=== PATIENT | female | born 1995 | race Caucasian/White ===

== ENCOUNTER 2024-12-18 13:25 | Emergency (ER) | payer OTHER, SELFPAY ==
[2024-12-18 13:47] VITALS: BP 105/72; PULSE 108; PULSE 84; RESP 22; TEMP 36.6; O2SAT 98; BMI 16.3
--- NOTE | 2024-12-18 13:47 | ECG_ITS ---
Test Reason : overdose Blood Pressure : */* mmHG Vent. Rate : 72 BPM Atrial Rate : 72 BPM P-R Int : 122 ms QRS Dur : 78 ms QT Int : 398 ms P-R-T Axes : * 53 48 degrees QTcB Int : 435 ms Normal sinus rhythm Normal ECG No previous ECGs available Referred By: Mary Barbosa Electronically Signed By: THERESE ELIZABETH MD
--- NOTE | 2024-12-18 13:53 | PC.NURSE ---
pt arrived via EMS reporting that she was told she could refuse treatment and be discharged if she wanted to be. EMS reported SI attempt via OD of home meds. Dr. Barbosa made aware of situation as pt once in room started becoming agitated, stating that she does not want to be here and does not consent to treatment. pt placed on a section 12 at this time. encourage to exchange consultant in room with Rosanna MARSHALL and Security at bedside. pt has a comfort dog with her.
[2024-12-18 13:54] VITALS: BP 112/62; PULSE 108; RESP 22; TEMP 36.4; O2SAT 99
--- NOTE | 2024-12-18 13:54 | ED_ITS ---
HPI - Psych General Chief Complaint: Psychiatric Symptoms Stated Complaint: SI ATTEMPT BY OD ON HIGH DOSES OF MEDS Time Seen by Provider: 12/18/24 13:29 History of Present Illness HPI Narrative: Patient is a 29-year-old female presented today with having extreme anxiety. Patient got upset at her significant other. Decided to take an overdose of medication. Patient claims that she has Wellbutrin and Effexor. Patient claims she took approximately 1200 mg of Wellbutrin instead of her normal 300 mg dose. Also took her normal dose of Effexor which is 1 tablet about 150. She took it at approximately 11:00 in the morning. Took it because she got into an argument with her significant other. No fever no chills no chest pain or shortness breath no focal weakness. Patient from home. Related Data Allergies Allergy/AdvReac Type Severity Reaction Status Date / Time No Known Allergies Allergy Verified 12/18/24 14:00 Review of Systems 2 Review of Systems: No fever no chills no chest pain or shortness of breath Refused answer anymore as questions PMFSH Past Medical History Attestation statement: The following information was validated with the patient. Social History Social History Smoked in Last 30 Days: No Advance Directives: No Advance Directives Information Provided: Yes Do you have a plan to hurt others: No Plan Patient : No Physical Exam 2 Vital Signs: Vital Signs: Last Vital Signs Temp 97.5 F 12/18/24 13:54 Pulse 108 H 12/18/24 13:54 Resp 22 H 12/18/24 13:54 BP 112/62 12/18/24 13:54 Pulse Ox 99 12/18/24 13:54 O2 Del Method Room Air 12/18/24 13:54 BMI result Body Mass Index 16.3 Appearance: Alert. Oriented X3. No acute distress. Eyes: Pupils equal, round and reactive to light. ENT: Pharynx normal. Neck: Normal inspection. Neck supple. No lymph nodes noted. No crepitus CVS: Normal heart rate and rhythm. Pulses normal. Normal S1 and S2 Respiratory: No respiratory distress. Breath sounds normal. No Wheezing. No rales Abdomen: Soft and nontender. No rigidity. No distention. good BS x4 Skin: Skin warm and dry. Normal skin color. Normal skin turgor. Extremities: No lower extremity edema. Neurovascular intact to all extremities. No Lacerations. No Rash Neuro: Oriented X 3. No motor deficit. No sensory deficit. Moving all extermities. No slurred speech. Cranial nerves grossly intact Medications Administered Discontinued Medications Generic Name Dose Route Start Last Admin Trade Name Hemantq PRN Reason Stop Dose Admin Sodium Chloride 1,000 mls @ 999 mls/hr 12/18/24 14:45 12/18/24 14:44 Ns IV 12/18/24 15:45 999 mls/hr .Q1H1M JAMIE Administration Sodium Chloride 1,000 mls @ 999 mls/hr 12/18/24 14:45 12/18/24 14:46 Ns IV 12/18/24 15:45 999 mls/hr .Q1H1M JAMIE Administration Lorazepam 1 mg 12/18/24 13:49 12/18/24 14:40 Lorazepam 1 Mg Tablet PO 12/18/24 13:50 1 mg ONCE ONE Administration Medical Decision Making Medical Decision Making [facility] Narrative: Patient took an overdose of Wellbutrin extended release 300 mg up to 4 tablets instead of taking 1 tablet. Also took 1 dose of Effexor. Patient's EKG showed a sinus pattern heart rate is 70 NM QRS QTC normal no acute ST segment elevation patient in no distress. Electrolytes showed an elevated lactate likely secondary to dehydration there is no signs of sepsis nevertheless 2 L of fluid was given. ABG showed no CO2 retention. No anion gap. Patient was monitored in the ED. Discussed with poison control. Poison control wanted 6 hours of monitoring 24 hours for total clearance. We will get crisis involved will do additional EKG at 16:00 and also at 18:00. Patient is currently in no distress awaiting crisis evaluation. Repeat EKG done at 16:00 shows sinus rhythm heart rate is 100 NM QRS QTC normal no acute ST segment elevation. Differential Diagnosis Differential Diagnoses: The differential diagnosis associated with the presentation includes Suicidal ideation overdose, Wellbutrin poisoning, dehydration, electrolyte disturbance secondary to anorexia Consult Healthcare Provider Management of the patient was discussed with: [facility]ser (Poison control center. Care team consulted) Lab Data [facility] Lab Attestation statement: I reviewed the patient's lab results. 12/18/24 14:12 12/18/24 14:12 Labs: Lab Results 12/18/24 12/18/24 Range/Units 14:12 14:16 WBC 6.1 (4.8-10.8) X10*3/uL RBC 3.48 L (4.20-5.50) X10*6/uL Hgb 11.4 L (12.0-16.0) g/dl Hct 33.6 L (37.0-47.0) % MCV 96.6 (80.0-98.0) fL MCH 32.8 (27.0-33.0) pg MCHC 33.9 (31.0-35.0) g/dl RDW 12.6 (11.0-16.0) % Plt Count 249 (160-400) X10*3/uL MPV 9.1 L (9.4-12.3) fL Immature Gran % (Auto) 0.3 (0.0-0.4) % Neut % (Auto) 50.1 (45-73) % Lymph % (Auto) 43.2 H (20-40) % Hodgeman % (Auto) 5.3 (2-11) % Eos % (Auto) 0.8 (0-4) % Baso % (Auto) 0.3 (0-2) % Lymph # (Auto) 2.6 (1.2-4.9) X10*3/uL Hodgeman # (Auto) 0.3 (0.1-1.2) X10*3/uL Eos # (Auto) 0.1 (0.0-0.4) X10*3/uL Baso # (Auto) 0.0 (0.0-0.2) X10*3/uL Abs Immat Gran (auto) 0.02 (0.00-0.03) X10*3/uL Absolute Neuts (auto) 3.0 (2.0-8.3) x10*3/uL Absolute Nucleated RBC 0.000 (0.0-0.012) X10*3/uL Nucleated RBC % (auto) 0.0 (0.0-0.2) /100WBC VBG pH 7.49 H (7.32-7.43) VBG pCO2 31 mmHg VBG pO2 29 mmHg VBG HCO3 24 (22-26) mmol/L VBG O2 Saturation 44.0 % VBG Base Excess 1.7 mmol/L Sodium 141 (135-145) mmol/L Potassium 3.6 (3.3-5.1) mmol/L Chloride 108 (96-108) mmol/L Carbon Dioxide 25 (22-29) mmol/L Anion Gap 12 (12-20) BUN 11 (9-16) mg/dL Creatinine 0.81 (0.5-1.4) mg/dL Estim Creat Clear Calc 70.3 Estimated GFR > 60 Random Glucose 105 (60-115) mg/dL Lactic Acid 2.4 H* (0.5-2.0) mmol/L Calcium 9.1 (8.4-10.2) mg/dL Magnesium 1.8 (1.6-2.6) mg/dL Total Bilirubin 0.3 (0.0-1.0) mg/dL Direct Bilirubin 0.1 (0.0-0.5) mg/dL AST 25 (5-31) U/L ALT 22 (0-31) U/L Alkaline Phosphatase 80 (39-117) U/L Total Protein 6.7 (6.5-8.0) g/dL Albumin 4.6 (3.5-5.0) g/dL TSH 0.98 (0.32-4.0) uIU/mL Beta HCG, Quant < 2 mIU/mL Salicylates < 5.0 L (15-30) mg/dL Acetaminophen < 3 (<30) mcg/mL Ethyl Alcohol < 10 mg/dL Independent Interpretation I performed an independent interpretation of an: EKG (Sinus heart rate is 70 NM QRS QTC normal no acute ST segment elevation) Chronic Conditions History of anxiety Social Determinants Patient?s care significantly limited by Social Determinants of Health including: Problems related to primary support group Discharge Plan Discharge Clinical Impression: Overdose Patient Disposition: Still a Patient Interventions: Russell-Suicide Risk Severity Scale Last Done: 12/18/24 13:47 Print Language: Upper Sorbian
--- NOTE | 2024-12-18 14:10 | MHC.CARE ---
Pt sent in by [facility] Khris co-response. Pt reportedly overdosed on home medications in a suicide attempt. She reportedly took 1200mg of Wellbutrin and is prescribed 300mg as well as taking 300mg of Effexor and is precribed 150mg. She reportedly also overdosed intentionally 2 weeks ago, fell asleep and did not receive medical attention. Per Sharon Blanco co-response clinician It seems that she overdoses regularly. Pt came in with a emotional support dog and reportedly has anorexia she is not receiving [place] for. Diagnosis of borderline personality disorder amongst others. reported to [facility] Pt has been extremely labile, angry, and argumentative with him and family for the past week. Pt did not come in on a Section 12a despite the risk of the situation and immediately wanted to leave the ED upon arrival. Pt was placed on a Section 12a facilitated by T/W and ED provider Dr. Barbosa. Pt became emotional and erratic calling [facility] from her hospital room.
[2024-12-18 14:16] LABS: MANUAL DIFF FLAG NO
[2024-12-18 14:20] LABS: Hematocrit 33.6 % (37.0-47.0); Hemoglobin 11.4 g/dl (12.0-16.0); Imm Gran Abs Auto 0.02 X10*3/uL (0.00-0.03); Imm Gran Pct Auto 0.3 % (0.0-0.4); Lymphocytes Absolute Auto 2.6 X10*3/uL (1.2-4.9); Mean Corpuscular HGB Conc 33.9 g/dl (31.0-35.0); Mean Corpuscular Hemoglobin 32.8 pg (27.0-33.0); Mean Corpuscular Volume 96.6 fL (80.0-98.0); NRBC Abs Auto 0.000 X10*3/uL (0.0-0.012); NRBC Pct Auto 0.0 /100WBC (0.0-0.2); Platelet Count 249 X10*3/uL (160-400); Red Blood Count 3.48 X10*6/uL (4.20-5.50); White Blood Count 6.1 X10*3/uL (4.8-10.8)
[2024-12-18 14:21] LABS: VBG HCO3 24 mmol/L (22-26); VBG O2 % Saturation 44.0 %
[2024-12-18 14:22] LABS: Venous Blood Gas Refer to POC result
--- OUTSIDE RECORDS SUMMARY | 2024-12-18 14:26 | XMS_ITS | Clinical Summary ---
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 60 tablet 0 10/17/2023 Active nicotine (NICODERM CQ) 14 MG/24HRIndications: Nicotine Dependence Place 1 patch onto the skin daily. 28 patch 0 10/18/2023 Active nicotine polacrilex (NICORETTE) 2 MG gumIndications:Antonio joel Dependence Use as directed 1 each (2 mg total) in the mouth or throat every hour as needed for smoking cessation (Nicotine craving). 100 each 0 10/17/2023 Active venlafaxine (EFFEXOR-XR) 37.5 MG 24 hr capsuleIndications: Generalized Anxiety Disorder,Major Depressive Disorder Take 1 capsule (37.5 mg total) by mouth every morning with breakfast. 30 capsule 0 10/18/2023 Active naloxone (Narcan) 4 MG/0.1ML nasal sprayIndications:Op ioid Overdose spray or apply 4 mg inside Nose once as needed for up to 1 dose. 2 each 0 10/17/2023 Active Active Problems Problem Noted Date Diagnosed Date Anorexia nervosa 10/15/2023 Borderline personality disorder 10/14/2023 Suicidal ideation 10/13/2023 Social History Tobacco Use Types Packs/Day Years Used Date Smoking Tobacco: Never Smokeless Tobacco: Current Tobacco Cessation:Ready to Q uit: No; Counseling Given: Yes Comments:Vape Alcohol Use Standard Drinks/Week Comments Not Currently 0 (1 standard drink = 0.6 oz pur e alcohol) Sex and Gender Information Value Date Recorded Sex Assigned at Female 10/13/2023 1:02 PM EDT Gender Identity Not on file Sexual Orientation Not on file Job Start Date Occupation Industry Not on file Not on file Not on file Last Filed Vital Signs Vital Sign Reading Time Taken Comments Blood Pressure 103/61 10/17/2023 8:00 AM EDT Pulse 76 10/17/2023 8:00 AM EDT Temperature 36.8 C (98.3 F) 10/17/2023 8:00 AM EDT Respiratory Rate 18 10/17/2023 8:00 AM EDT Oxygen Saturation 100% 10/17/2023 8:00 AM EDT Inhaled Oxygen Concentration - - Weight 45.4 kg (100 lb) 10/15/2023 8:59 AM EDT Height 162.6 cm (5' 4 ) 10/15/2023 9:00 AM EDT Body Mass Index 17.16 10/15/2023 8:59 AM EDT Plan of Treatment Health Maintenance Due Date Last Done Comments Hepatitis B Vaccines (1 of 3 - 3-dose series) 1996 Hepatitis C Screening 1996 COVID-19 Vaccine (#1) 1996 Depression Screening 2008 Preventative Health Evaluation 01/16/2014 DTap / Tdap / Td (1 - Tdap) 01/16/2015 Cervical Cancer Screening (P ap Smear) 01/16/2017 Influenza Vaccine (#1) 2025 Pneumococcal Vaccine Aged Out No long er eligible based on patient's age to complete this topic RSV Ped < 20 months Aged Out No longe r eligible based on patient's age to complete this topic Advance Directives For more information, please contact: [phone] Latest Code Status on File Code Status Date Activated Date Inactivated Comments Full Code 10/14/2023 10:06 PM 10/17/2023 10:21 PM This code status was ascertained in the following way: per unit protocol. Code Status History Code Status Date Activated Date Inactivated Comments Full Code 10/13/2023 3:35 PM 10/14/2023 8:50 PM This code status was ascertained in the following way: discussion with patient . Care Teams Unit Controller Relationship Specialty Start Date End Date Nevin Flores PA-C [address] [place] [address] PCP - General Medical Services 10/13/23
--- OUTSIDE RECORDS SUMMARY | 2024-12-18 14:26 | XMS_ITS | Clinical Summary ---
Author Organization [facility] ity Address [address] [place] [address] Care Team Providers Care Test Case Developer Name Role Phone Nevin Medina Primary Care Provider [phone] Social History Tobacco Use Types Packs/Day Years Used Date Smoking Tobacco: Never Smokeless Tobacco: Current Alcohol Use Standard Drinks/Week Comments Not Currently 0 (1 standard drink = 0.6 oz pur e alcohol) Comments Unknown Sex and Gender Information Value Date Recorded Sex Assigned at Not on file Legal Sex Female 4:39 PM EDT Gender Identity Not on file Sexual Orientation Not on file Obstetrics History Plan of Treatment Health Maintenance Due Date Last Done Comments DTaP,Tdap,and Td Vaccines (1 - Tdap) 01/16/2015 Hepatitis B Vaccines (1 of 3 - 19+ 3-dose series) 01/16/2015 Cervical Cancer Screening: P ap Smear 01/16/2017 Depression Screening 01/08/2024 HIV Screening 01/08/2024 Hepatitis C Screening 01/08/2024 Social Influencers of Health Screening 01/08/2024 COVID-19 Vaccine ( - 2023-2 5 season) 2024 Influenza Vaccine (Season Ended) 2025 HIB Vaccines Aged Out No longer eligi ble based on patient's age to complete this topic HPV Vaccines Aged Out No longer eligi ble based on patient's age to complete this topic Hepatitis A Vaccines Aged Out No long er eligible based on patient's age to complete this topic IPV Vaccines Aged Out No longer eligi ble based on patient's age to complete this topic MMR Vaccines Aged Out No longer eligi ble based on patient's age to complete this topic Meningococcal ACWY Vaccine Aged Out N o longer eligible based on patient's age to complete this topic Meningococcal B Vaccine Aged Out No l onger eligible based on patient's age to complete this topic Pneumococcal Vaccine: Pediat rics (0 to 5 Years) and At-Risk Patients (6 to 64 Years) Aged Out No longer eligible b ased on patient's age to complete this topic RSV Immunization Patients Un rosemarie 20 months Aged Out No longer eligible b ased on patient's age to complete this topic Varicella Vaccines Aged Out No longer eligible based on patient's age to complete this topic Care Teams Test Case Developer Relationship Specialty Start Date End Date Nevin Medina PA ANA JACINTO [address] [place] [id number] PCP - General 10/13/23
[2024-12-18 14:40] LABS: Acetaminophen LAB < 3 mcg/mL (<30); Salicylate < 5.0 mg/dL (15-30)
[2024-12-18 14:43] LABS: Alanine Aminotransferase 22 U/L (0-31); Albumin Level 4.6 g/dL (3.5-5.0); Alkaline Phosphatase 80 U/L (39-117); Anion Gap 12 (12-20); Aspartate Amino Transferase 25 U/L (5-31); Blood Urea Nitrogen 11 mg/dL (9-16); Calcium 9.1 mg/dL (8.4-10.2); Carbon Dioxide 25 mmol/L (22-29); Chloride 108 mmol/L (96-108); Creatinine Clr Calc Pharmacy 70.3; Estimated Glomerular Filt Rate > 60; Magnesium 1.8 mg/dL (1.6-2.6); Potassium 3.6 mmol/L (3.3-5.1); Sodium 141 mmol/L (135-145); Total Protein 6.7 g/dL (6.5-8.0)
--- NOTE | 2024-12-18 14:57 | MHC.CARE ---
T/w reached out to patient's , Joby. Joby shares that following: -patient is easily triggered, she doesn't know how to calm down, per . He questions if it is the medication side effects. He reports she is on two strong meds. He mentions that she was aggressive toward him and when t/w asked for clarity he states that he will not answer that question. -he does state that she has no legal. -Patient is on SSDI. -he reports that she has been admitted [facility] in the past, in [facility]. Perhaps he meant [facility]? He reports she has been dx with borderline personality d/o and ODD. -he shares that she is usually sweet tempered, however believes that the medicine has been affecting her. States in two years she has been on like 30 different meds. -he reports that they have been together for nine years. They lived in [place] and relocated to [facility] [place] [facility], as he, Joby is from the area. They have a son. -this sql report writer asked several times if patient had a history of attempts, self injury and patient's again states I will not answer that. I'll leave it up to professionals. When t/w attempted to explain that since the ED/ CARE team doesn't know patient well, it helps to get background from family/ friends/ providers. He maintains that he does not want to answer that question. He then says he would be fine with coming to get her, and would not let her hurt herself. -in regard to what led to patient being assessed, he reports she was flipping out, screaming. She calmed down. Then her psychiatrist called and it all got worse. He reports this led to [facility] being called for evaluation. By the time they got out there she was outside with her dog. -he shares that she struggles with sleep, has nightmares/ night terrors and will awaken in a cold sweat/ frigid -he reports concern that she does not eat unless he insists on it, and doesn't seem able to care for herself. He reports that in the past 1.5 years she has lost quite a bit of weight. 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 -he reports that there is a quite a bit of stress, they have a child and may be facing homelessness. When colleague Nikkie Porter, [facility] called [facility] for more info, [facility] shared that patient herself called the [facility] and requested to speak to nursing and reported that she overdosed Patinet has a counter caser through [facility], Clara Rivera [phone]
--- NOTE | 2024-12-18 15:01 | PC.NURSE ---
Spoke with Poison control: poison control stated that activated charcoal could be beneficial if pt did in-fact take the meds - rule out risks/benefits. recommended serial EKG Q2hr x3. if QTC greater than 500 recommend Mag >2 and K > 4 initiate seizure precautions and give benzos for sx
--- NOTE | 2024-12-18 15:22 | MHC.CARE ---
lvm with Clara Rivera, nurse outreach case manager with [facility], requesting call back
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
--- NOTE | 2024-12-18 15:41 | PC.NURSE ---
spoke with pt about her dog- informed pt that she will be an inpatient bed-search and will have to have someone molded goods spot picker the dog as pt is a section 12 and will be unable to care for the dog while she is here in the hosptial
--- NOTE | 2024-12-18 16:00 | ECG_ITS ---
Test Reason : overdose Blood Pressure : */* mmHG Vent. Rate : 98 BPM Atrial Rate : 98 BPM P-R Int : 110 ms QRS Dur : 80 ms QT Int : 360 ms P-R-T Axes : 83 55 34 degrees QTcB Int : 459 ms Sinus rhythm with short OH Nonspecific T wave abnormality Abnormal ECG When compared with ECG of 18-Dec-2024 13:55, Nonspecific T wave abnormality now evident in Inferior leads Nonspecific T wave abnormality now evident in Lateral leads Referred By: Mary Barbosa Electronically Signed By: THERESE ELIZABETH MD
--- NOTE | 2024-12-18 16:00 | MHC.EDTECH ---
Did the pts EKG about 1600/ During putting the wires on the Pt the Pt had a small dog with her. The dog then tried biting me as i was putting the wires on the PT. Went a mega Foster the nurse to help assist me with the rest of the EKG
[2024-12-18 16:16] LABS: Reflex Lactate? Lactic Acid Added
[2024-12-18 16:58] VITALS: BP 99/56; PULSE 105; RESP 18; TEMP 36.9; O2SAT 100
--- NOTE | 2024-12-18 17:00 | PC.NURSE ---
Poison Control called for updates; lab results relayed. Recommended to supplement K until result of 4, and to supplement Mg to a result of 4. Recommendations relayed to covering
[2024-12-18] MEDS: Potassium Chloride ER 20 MEQ TAB.ER.PRT 40 MEQ PO (17:21)
[2024-12-18 17:54] VITALS: BP 95/52; PULSE 94; RESP 20; TEMP 36.9; O2SAT 99
--- NOTE | 2024-12-18 18:00 | ECG_ITS ---
Test Reason : OVERDOSE Blood Pressure : */* mmHG Vent. Rate : 93 BPM Atrial Rate : 93 BPM P-R Int : 116 ms QRS Dur : 84 ms QT Int : 376 ms P-R-T Axes : 73 49 33 degrees QTcB Int : 467 ms Normal sinus rhythm Normal ECG When compared with ECG of 18-Dec-2024 15:52, Nonspecific T wave abnormality no longer evident in Inferior leads Referred By: Mary Barbosa Electronically Signed By: THERESE ELIZABETH MD
[2024-12-18 19:06] VITALS: BP 97/53; PULSE 100; RESP 18; TEMP 36.9; O2SAT 100
== END 2024-12-18 19:08 | disposition still patient (30) ==
PROVIDERS: Emergency Medicine Emergency Medical Services; Emergency Provider Emergency Medicine
DX: T43.292A Poisoning by other antidepressants, intentional self-harm, initial encounter (principal); T43.212A Poisoning by selective serotonin and norepinephrine reuptake inhibitors, intentional self-harm, initial encounter; Y92.009 Unspecified place in unspecified non-institutional (private) residence as the place of occurrence of the external cause
CPT/HCPCS: 36415; 80048; 80076; 80143; 80179; 80307; 82803; 83605; 83735; 84443; 84702; 85025; 93005; 96360; 96361; 99285; S9485

== ENCOUNTER → 2024-12-18 13:47 | Outpatient (BNV) | payer OTHER, SELFPAY | PROVIDERS: Emergency Provider Emergency Medicine; Visit Provider Internal Medicine Cardiovascular Disease | DX: R94.31 Abnormal electrocardiogram [ECG] [EKG] (principal); T50.901A Poisoning by unspecified drugs, medicaments and biological substances, accidental (unintentional), initial encounter | CPT/HCPCS: 93010 ==